=== PATIENT | female | born 1960 | race Asian ===

== ENCOUNTER 2020-04-08 12:04 | Emergency (ER) | payer OTHER ==
[2020-04-08 12:20] VITALS: BP 138/85
[2020-04-08 13:02] LABS: BILIRUBIN,URINE NEGATIVE (NEGATIVE); GLUCOSE, URINE (UA) NEGATIVE (NEGATIVE); KETONES,URINE (UA) NEGATIVE (NEGATIVE); LEUKOCYTE ESTERASE, URINE LARGE (NEGATIVE); NITRITE,URINE POSITIVE (NEGATIVE); OCCULT BLOOD,URINE LARGE (NEGATIVE); PROTEIN,URINE NEGATIVE (NEGATIVE); UROBILINOGEN,URINE 0.2 (NORMAL) E.U./dL (NORMAL)
--- NOTE | 2020-04-08 13:04 | ED Physician Documentation ---
PD HPI FEMALE - Stated complaint Stated Complaint: FEMALE - Chief complaint Chief Complaint: UTI - History obtained from History obtained from: Patient (Healthy 59-year-old woman with history of hysterectomy has had pain at the end of the urinary stream since yesterday as well as suprapubic pressure. No flank pain fevers or nausea. No history of frequent UTIs.) Review of Systems Constitutional: denies: Fever, Chills GI: denies: Nausea, Vomiting, Constipation, Diarrhea : reports: Dysuria, Frequency, Hematuria PD PAST MEDICAL HISTORY - Present Medications Home Medications: Ambulatory Orders Medication Instructions Recorded Confirmed Nitrofurantoin Monohyd/M-Cryst 100 mg PO BID #10 capsule 04/08/20 [Macrobid 100 mg Capsule] Phenazopyridine HCl [Pyridium] 200 mg PO TID PRN #6 tablet 04/08/20 - Allergies Allergies/Adverse Reactions: Allergies Allergy/AdvReac Type Severity Reaction Status Date / Time No Known Drug Allergies Allergy Verified 04/08/20 12:15 PD ED PE NORMAL - Vitals Vital signs reviewed: Yes - General General: Alert and oriented X 3, No acute distress, Well developed/nourished - Abdomen Abdomen: Normal bowel sounds, Soft, Non tender - Back Back: No CVA TTP - Neuro Neuro: Alert and oriented X 3, Normal speech Results - Vitals Vitals: Vital Signs - 24 hr 04/08/20 12:15 Temperature 36.4 C L Heart Rate 75 Respiratory 16 Rate Blood Pressure 138/85 H O2 Saturation 99 Oxygen O2 Source Room air - Labs Labs: Laboratory Tests 04/08/20 12:35 Urine Color YELLOW Urine Clarity CLOUDY Urine pH 7.0 Ur Specific [place] 1.010 Urine Protein NEGATIVE Urine Glucose (UA) NEGATIVE Urine Ketones NEGATIVE Urine Occult Blood LARGE H Urine Nitrite POSITIVE H Urine Bilirubin NEGATIVE Urine Urobilinogen 0.2 (NORMAL) Ur Leukocyte Esterase LARGE H Urine RBC 0-5 Urine WBC 11-25 H Ur Squamous Epith Cells NONE SEEN Urine Bacteria Moderate H Ur Microscopic Review INDICATED Urine Culture Comments INDICATED Departure - Departure Disposition: 01 Home, Self Care Clinical Impression: Cystitis Condition: Good Record reviewed to determine appropriate education?: Yes Instructions: ED UTI Cystitis Female Prescriptions: Nitrofurantoin Monohyd/M-Cryst [Macrobid 100 mg Capsule] 100 mg PO BID #10 capsule Phenazopyridine HCl [Pyridium] 200 mg PO TID PRN #6 tablet PRN Reason: dysuria Comments: We will culture your urine, the results should be done in 48-72 hours. If an antibiotic change is necessary we will call you. Return if worse in the meantime, especially if you develop increasing flank pain, fevers, or cannot keep down the medication.
[2020-04-08 13:06] LABS: CLARITY,URINE CLOUDY (CLEAR)
[2020-04-08 13:12] LABS: BACTERIA,URINE Moderate /HPF (None Seen); RBC,URINE 0-5 /HPF (0-5); SQUAMOUS EPITHELIAL CELL,UR NONE SEEN (<= Few)
[2020-04-08] MEDS ORDERED: PHENAZOPYRIDINE 100 MG TABLET PO STA (13:19)
[2020-04-08] MEDS ORDERED: NITROFURANTOIN MACRO 100 MG CAPSULE PO STA (13:19)
== END 2020-04-08 13:36 | disposition home or self-care (01) ==
LOC: ED 12:04
DX: N30.91 Cystitis, unspecified with hematuria (principal)
CPT/HCPCS: 81001; 87077; 87086; 87181; 99283; A9270; 81003